=== PATIENT | male | born 1955 | race Caucasian/White ===

== ENCOUNTER 2024-02-23 09:39 | Day surgery (SDC) | payer BC ==
[~2024-02-23] VITALS: Ht 172.7 cm; Wt 56.7 kg
[2024-02-23] MEDS ORDERED: WATER FOR IRRIGATION,STERILE 1,000 ML IRRIG.SOLN IR ONE (12:15)
[2024-02-23] MEDS ORDERED: LR 1,000 ML IV.SOLN IV ONE (12:15)
[2024-02-23] MEDS ORDERED: LIDOCAINE/EPI 1% 1:100000 20 ML VIAL ONE (12:15)
[2024-02-23] MEDS ORDERED: NS IRRIG SOLN 1000 ML IR ONE (12:15)
[2024-02-23] MEDS ORDERED: KETAMINE HCL IN 0.9 % NACL 50 MG/5 ML SYRINGE ONE (12:17)
[2024-02-23] MEDS ORDERED: MIDAZOLAM HCL 2 MG/2 ML VIAL (VERSED) ONE (12:17)
[2024-02-23 13:31] VITALS: O2SAT 99
[2024-02-23 17:04] VITALS: BP_SYST 137; PULSE 57; RESP 20
[2024-02-25] MEDS ORDERED: OMEP40CA20 PO (07:23)
[2024-02-25] MEDS ORDERED: CEVIMELINE PO (07:23)
[2024-02-25] MEDS ORDERED: LEVO88TA5 PO (07:23)
[2024-02-25] MEDS ORDERED: DOCU-156 PO (07:23)
[2024-02-25] MEDS ORDERED: MIRT-91 PO (07:23)
== END 2024-02-23 17:50 | disposition home or self-care (01) ==
LOC: SMU 09:39 → SDS 09:39
PROVIDERS: ATTEND Surgery
DX: K60.2 Anal fissure, unspecified (principal); J44.9 Chronic obstructive pulmonary disease, unspecified; Z87.891 Personal history of nicotine dependence; Z90.89 Acquired absence of other organs; Z98.890 Other specified postprocedural states; Z85.01 Personal history of malignant neoplasm of esophagus; Z80.1 Family history of malignant neoplasm of trachea, bronchus and lung
CPT/HCPCS: 46080; 87081; J3465; J7120